=== PATIENT | female | born 1970 ===

== ENCOUNTER 2021-09-12 15:06 | Outpatient (REF) | payer BC, SELFPAY ==
[2021-09-12 14:40] LABS: HCT 41.8 % (36.0-46.0); HGB 13.4 g/dL (11.2-15.7); MCH 29.7 pg (27.0-33.0); MCHC 32.1 % (32.0-36.0); MCV 93 fL (80-95); MPV 11.7 fL (8.0-11.0); Platelet Count 254 10^3/uL (130-400); RBC 4.51 10^6/uL (3.93-5.22); RDW 12.5 % (11.7-14.6); RDW-SD 42.5 fL; WBC 6.14 10^3/uL (4.4-10.8)
[2021-09-12 15:25] LABS: ALT 30 U/L (14-59); AST 16 U/L (15-37); Albumin 4.4 g/dL (3.4-5.0); Alkaline Phosphatase 84 U/L (46-116); Anion Gap 9.5 mmol/L (3-11); BUN 18 mg/dL (7-18); Bilirubin, Total 0.5 mg/dL (0.2-1.0); CO2 27.5 mmol/L (21.0-32.0); CREATININE 0.8 mg/dL (0.55-1.02); Calcium 9.5 mg/dL (8.5-10.1); Calculated LDL 182 mg/dL (<100); Chloride 100 mmol/L (98-107); Cholesterol 252 mg/dL (<200); Glucose 102 mg/dL (74-106); HDL Cholesterol 50 mg/dL (40-60); Potassium 4.3 mmol/L (3.5-5.1); Sodium 137 mmol/L (136-145); TSH 1.83 uIU/mL (0.36-3.74); Total Protein 7.4 g/dL (6.4-8.2); Triglyceride 103 mg/dL (<150)
== END 2021-09-12 15:07 | disposition home or self-care (01) ==
LOC: NCHCN 15:06
PROVIDERS: PCP Nurse Practitioner Family; Visit Provider Nurse Practitioner Family
DX: Z00.00 Encounter for general adult medical examination without abnormal findings (principal); F32.9 Major depressive disorder, single episode, unspecified; Z13.29 Encounter for screening for other suspected endocrine disorder; Z13.220 Encounter for screening for lipoid disorders
CPT/HCPCS: 80053; 80061; 85027; 84443